=== PATIENT | female | born 1985 | race African-American/Black ===

== ENCOUNTER 2016-08-23 10:53 | Inpatient (IN) | payer OTHER ==
[2016-08-22 10:03] VITALS: BMI 44.9
[2016-08-23] MEDS ORDERED: BUPIVACAINE HCL/PF 0.5% (5MG/ML) 10 ML VIAL ONE (12:19)
[2016-08-23] MEDS ORDERED: PROPOFOL 20 ML ONE ×2 (12:27)
[2016-08-23] MEDS ORDERED: ROCURONIUM BROMIDE 50 MG/5 ML VIAL ONE ×2 (12:27→13:41)
[2016-08-23] MEDS ORDERED: MIDAZOLAM HCL 2 MG/2 ML SINGLE DOSE VIAL ONE (12:28)
[2016-08-23] MEDS ORDERED: SCOPOLAMINE HYDROBROMIDE 1 PATCH PATCH.TD72 ONE (12:37)
[2016-08-23] MEDS ORDERED: ceFAZolin SODIUM 1 GM VIAL IVPB ONE (14:02)
[2016-08-23] MEDS ORDERED: DEXAMETHASONE SOD PHOSPHATE 4 MG/1 ML VIAL ONE (14:03)
[2016-08-23] MEDS ORDERED: ceFAZolin SODIUM 1 GM VIAL ONE (14:03)
[2016-08-23] MEDS ORDERED: BUPIVACAINE HCL/PF 0.5% (5MG/ML) 10 ML VIAL IJ ONE (14:31)
[2016-08-23] MEDS ORDERED: NEOSTIGMINE METHYLSULFATE 0.5 MG/ML - 10 ML MDV ONE (16:10)
[2016-08-23] MEDS ORDERED: GLYCOPYRROLATE 0.2 MG/1 ML VIAL ONE (16:11)
[2016-08-23] MEDS ORDERED: LACTATED RINGERS SOLUTION 1,000 ML IV SCH (16:45)
[2016-08-23] MEDS ORDERED: HYDROmorphone HCL CARPU-JECT 2 MG/1 ML DISP.SYRIN IVPUSH ONE ×3 (16:45→17:30)
[2016-08-23] MEDS ORDERED: PROMETHAZINE HCL 25 MG/1 ML VIAL IVPUSH PRN (16:45)
[2016-08-23] MEDS ORDERED: HYDROmorphone HCL CARPU-JECT 1 MG/1 ML DISP.SYRIN IVPUSH PRN (16:45)
[2016-08-23] MEDS ORDERED: ONDANSETRON 4 MG/2 ML VIAL IVPUSH PRN (16:45)
[2016-08-23] MEDS ORDERED: ACETAMINOPHEN INJECTION 100 ML IVPB ONE (16:47)
[2016-08-23] MEDS ORDERED: HYDROmorphone HCL CARPU-JECT 2 MG/1 ML DISP.SYRIN ONE (16:47)
[2016-08-23] MEDS ORDERED: ACETAMINOPHEN 1000 MG/100 ML VIAL (NON FORMULARY) IVPB ONE (16:50)
--- NOTE | 2016-08-23 17:09 | HP ---
Admitting History and Physical - Admission Chief Complaint: Morbid Obesity History of Present Illness: 31 female presented to the office for bariatric surgery Decided on laparoscopic vertical sleeve gastrectomy History Source: Patient Limitations to Obtaining History: No Limitations - Past Medical History Cardiovascular: Yes: HTN Gastrointestinal: Yes: Other (Morbid Obesity) ...LMP: 07/22/16 - Past Surgical History Past Surgical History: Yes: - Smoking History Smoking history: Never smoked - Alcohol/Substance Use Hx Alcohol Use: Yes (OCCAS) Home Medications - Allergies Allergies/Adverse Reactions: Allergies Allergy/AdvReac Type Severity Reaction Status Date / Time No Known Allergies Allergy Verified 08/22/16 10:03 - Home Medications Home Medications: Ambulatory Orders NK [No Known Home Medication] 08/23/16 Family Disease History - Family Disease History Family History: Unremarkable Review of Systems - Review of Systems Constitutional: denies: Chills, Fever HENT: reports: No Symptoms Neck: denies: Decreased ROM Cardiovascular: denies: Chest Pain Respiratory: denies: Cough Gastrointestinal: denies: Abdominal Pain Genitourinary: reports: No Symptoms Endocrine: reports: No Symptoms Pain Intensity: 0 Physical Examination Vital Signs: Vital Signs Temperature 99.0 F 08/23/16 11:43 Pulse Rate 90 08/23/16 11:43 Respiratory Rate 18 08/23/16 11:43 Blood Pressure 123/80 08/23/16 11:43 O2 Sat by Pulse Oximetry (%) 100 08/23/16 11:43 Constitutional: Yes: Calm HENT: Yes: WNL Neck: Yes: Supple Cardiovascular: Yes: Regular Rate and Rhythm Respiratory: Yes: Regular Gastrointestinal: Yes: Soft, Abdomen, Obese Extremities: Yes: WNL Neurological: Yes: Alert, Oriented Problem List - Problems (1) Morbid (severe) obesity due to excess calories Code(s): E66.01 - MORBID (SEVERE) OBESITY DUE TO EXCESS CALORIES (2) Hypertension Code(s): I10 - ESSENTIAL (PRIMARY) HYPERTENSION Qualifiers: Hypertension type: essential hypertension Qualified Code(s): I10 - Essential (primary) hypertension Assessment/Plan Morbid Obesity For laparoscopic vertical sleeve gastrectomy Risks and benefits explained Understands and agrees
--- NOTE | 2016-08-23 17:10 | OP ---
Operative Note - Note: Operative Date: 08/23/16 Pre-Operative Diagnosis: Morbid Obesity Operation: Laparoscopic vertical sleeve gastrectomy Post-Operative Diagnosis: Same as Pre-op Surgeon: Jefferson Arango Investment Banking Associate: Sol Hager Anesthesia: General Specimens Removed: Greater curvature of the stomach Estimated Blood Loss (mls): 30 Drains & Tubes with Location: cottrell Operative Report Dictated: Yes
[2016-08-23] MEDS ORDERED: SODIUM CHLORIDE 1,000 ML IV SCH (17:15)
[2016-08-23] MEDS: ACETAMINOPHEN 1000 MG/100 ML VIAL (NON FORMULARY) IVPB SCH ×2 (17:20→22:21)
[2016-08-23 17:26] LABS: MCH 26.2 pg (25.7-33.7); MCHC 31.8 g/dl (32.0-36.0); MEAN CELL VOLUME 82.3 fl (80-96); MEAN PLT VOLUME 9.2 fl (7.5-11.1); PLATELET COUNT 305 K/MM3 (134-434); RDW 14.3 % (11.6-15.6); WHITE BLOOD COUNT 15.6 K/mm3 (4.0-10.0)
[2016-08-23 17:58] LABS: ALBUMIN 3.6 g/dl (3.4-5.0); ALK PHOS 69 U/L (45-117); ANION GAP 13 (8-16); BILIRUBIN,TOTAL 0.3 mg/dL (0.2-1.0); CALCIUM 8.5 mg/dL (8.5-10.1); CO2 23 mmol/L (21-32); GLUCOSE,RANDOM 125 mg/dL (74-106); SGOT/AST 26 U/L (15-37); SGPT/ALT 32 U/L (12-78); TOT PROT 6.7 g/dl (6.4-8.2)
[2016-08-23] MEDS: HYDROmorphone HCL CARPU-JECT 1 MG/1 ML DISP.SYRIN IVPB PRN (19:04)
--- NOTE | 2016-08-23 19:40 | SPEC ---
DATE OF OPERATION: 08/23/2016 SURGEON: Daja Arango M.D. BACK JOINER: Chana Rodriguez PREOPERATIVE DIAGNOSIS: Morbid obesity. POSTOPERATIVE DIAGNOSIS: Morbid obesity. PROCEDURE: Laparoscopic vertical sleeve gastrectomy. SPECIMENS: Greater curvature of the stomach. ESTIMATED BLOOD LOSS: 30 mL. DRAINS: None. ANESTHESIA: GET. RISKS AND BENEFITS: After describing the different options for weight loss management, the patient decided to proceed with a laparoscopic, possible open vertical sleeve gastrectomy. The patient was seen by the respective subspecialties and cleared for surgery. The risks and benefits of the procedure were explained. These included bleeding, infection, hernia, KS, DVT, PE, injury to surrounding structures including the liver, colon, bowel, spleen, esophagus, vessel injury, nerve injury, weight regain, gastric leak, staple line leak, sleeve leak, obstruction, vitamin deficiency, hair loss, and as some of the possible complications. The patient understood and signed informed consent. DESCRIPTION OF PROCEDURE: The patient was placed supine on the operating room table. The patient underwent general endotracheal intubation. A Oliveira catheter was inserted. The arms were brought out at 90 degrees and secured. A foot board was placed, and the legs were secured laterally with padding. The abdomen was prepped and draped in the usual sterile fashion. A timeout was performed. An incision was made in the left upper quadrant, and a Veress needle inserted. Pneumoperitoneum was established. Subsequently, the Veress needle was removed, and a 12-mm trocar was placed. The laparoscopic camera was inserted, and inspection of the abdominal cavity was performed. An incision was made in the supraumbilical region, and a 15-mm trocar placed under direct visualization. A 5-mm trocar was then placed in the right upper quadrant, and a 5-mm trocar placed below the left subcostal margin. A stab wound was made in the subxiphoid area, and a Jelly clamp inserted and removed to dilate the tract. A Berenice liver retractor was inserted. The post was secured at the bedside by the nursing staff. The patient was placed in steep reverse Trendelenburg position. The Berenice liver retractor was used to secure the liver towards the anterior abdominal wall. The pylorus was identified and 6 cm proximal to it, the lesser sac was entered using the Ligasure device. All lateral attachments to the greater curvature of the stomach including the short gastric vessels were ligated using the Ligasure device toward the gastrosplenic and gastrophrenic ligaments. Once this was done in its entirety, it was confirmed that all tubes within the nasal or oropharyngeal cavity including a temperature probe was removed by Anesthesia. The bougie was then inserted by Anesthesia. Transection of the stomach was then begun staying adjacent to the bougie but away from the angularis. Transection of the stomach was performed near the portion of the stomach where the lesser sac was entered. Two laparoscopic Endo-HEATHER black loads were used at this location. Laparoscopic Endo-HEATHER purple loads were then used for the remainder of the transection until the greater curvature of the stomach was fully transected. This was done staying close to the bougie. Care was taken to stay away from the angle of His cephalad. The staple line was then inspected. Hemostasis was identified. A leak test was then performed. The stomach was clamped distally to the staple line. Irrigation solution was placed in the left upper quadrant, and air insufflated by Anesthesia into the sleeve. No leaks were identified, and no obstruction was identified. This was done throughout the entirety of the staple line. At this point, the irrigation solution was suctioned, and again hemostasis noted. The 15-mm supraumbilical trocar was then removed, and the specimen removed from the site using a sponge stick rodriguez. The specimen was inspected, and a Veress needle inserted. The specimen insufflated adequately, and no leak was identified. The staple line was noted to be intact. A Marcel Renee device was then used to temporarily close the fascia with a 0 Vicryl suture at this site. The 15-mm trocar was then reinserted, and the 12-mm trocar in the left upper quadrant removed. The fascia at this site was then closed using a Marcel Renee device with a 0 Vicryl suture. Again, hemostasis was noted. The Berenice liver retractor was then removed under direct visualization. Pneumoperitoneum was desufflated, and the fascial sutures were secured. Hemostasis was noted at all incision sites, and Marcaine was injected at all incision sites. All incision sites were closed using 4-0 Biosyn. Sterile dressings were applied. The patient tolerated the procedure well, and was transferred to the recovery room in stable condition with the Oliveira catheter intact. The patient was transferred to telemetry for further monitoring. Several areas of the staple line were noted to be oozing and were oversewn using Endo Stitch with 2-0 Ethibond suture. At the end, all bleeding was noted to be controlled. DAJA ARANGO M.D. [id number]
[2016-08-23] MEDS: ONDANSETRON 4 MG/2 ML VIAL IVPB SCH ×2 (20:32)
[2016-08-23] MEDS: METOCLOPRAMIDE HCL INJECTION 10 MG/2 ML VIAL IVPB SCH ×2 (20:32→22:22)
[2016-08-23] MEDS: ENOXAPARIN NA (PORCINE) 40 MG/0.4 ML DISP.SYRIN SQ SCH (22:22)
[2016-08-23] MEDS: FAMOTIDINE 20 MG/50 ML IVPB 50 ML IVPB SCH (22:22)
[2016-08-24] MEDS: ONDANSETRON 4 MG/2 ML VIAL IVPB SCH ×6 (00:49→20:57)
[2016-08-24] MEDS: HYDROmorphone HCL CARPU-JECT 1 MG/1 ML DISP.SYRIN IVPB PRN ×6 (00:50→21:02)
[2016-08-24] MEDS: METOCLOPRAMIDE HCL INJECTION 10 MG/2 ML VIAL IVPB SCH ×4 (06:22→22:23)
[2016-08-24] MEDS: ACETAMINOPHEN 1000 MG/100 ML VIAL (NON FORMULARY) IVPB SCH ×2 (06:23→11:36)
[2016-08-24 08:04] LABS: MCH 26.4 pg (25.7-33.7); MCHC 32.1 g/dl (32.0-36.0); MEAN CELL VOLUME 82.1 fl (80-96); MEAN PLT VOLUME 9.1 fl (7.5-11.1); PLATELET COUNT 274 K/MM3 (134-434); RDW 14.3 % (11.6-15.6); WHITE BLOOD COUNT 13.5 K/mm3 (4.0-10.0)
[2016-08-24 08:56] LABS: ALBUMIN 3.4 g/dl (3.4-5.0); ALK PHOS 63 U/L (45-117); ANION GAP 11 (8-16); BILIRUBIN,TOTAL 0.4 mg/dL (0.2-1.0); CALCIUM 8.1 mg/dL (8.5-10.1); CO2 23 mmol/L (21-32); CREATININE 0.8 mg/dL (0.55-1.02); GLUCOSE,RANDOM 102 mg/dL (74-106); SGOT/AST 40 U/L (15-37); SGPT/ALT 44 U/L (12-78); TOT PROT 6.3 g/dl (6.4-8.2)
--- NOTE | 2016-08-24 09:41 | PN ---
[id number] since surgery. Just returned from having her UGI --> No evidence of gastric outlet obstruction , extravasation or leak. small volume of stomach. Normal mucosal pattern in duodenal sweep, proximal jejunum opacified. She is OOB and ambulating. Denies n/ v/f/c, CP or SOB. Last Vital Signs Temp Pulse Resp BP Pulse Ox 98.3 F 101 H 20 127/90 97 08/24/16 08:18 08/24/16 08:18 08/24/16 08:18 08/24/16 08:18 08/23/16 21:00 CBC, BMP 08/24/16 06:20 08/24/16 06:20 <Gokul Davis P - Last Filed: 08/24/16 09:45> - Note Progress Note: Agree POD 1 laparoscopic vertical sleeve gastrectomy + Nausea No vomiting Pain controlled AVSS Abd soft, wounds c/d/i CBC,CMP WBC 13.5 K/mm3 (4.0-10.0) H 08/24/16 06:20 RBC 4.36 M/mm3 (3.60-5.2) 08/24/16 06:20 Hgb 11.5 GM/dL (10.7-15.3) 08/24/16 06:20 Hct 35.8 % (32.4-45.2) 08/24/16 06:20 MCV 82.1 fl (80-96) 08/24/16 06:20 MCHC 32.1 g/dl (32.0-36.0) 08/24/16 06:20 RDW 14.3 % (11.6-15.6) 08/24/16 06:20 Plt Count 274 K/MM3 (134-434) 08/24/16 06:20 MPV 9.1 fl (7.5-11.1) 08/24/16 06:20 Sodium 140 mmol/L (136-145) 08/24/16 06:20 Potassium 4.2 mmol/L (3.5-5.1) 08/24/16 06:20 Chloride 106 mmol/L (98-107) 08/24/16 06:20 Carbon Dioxide 23 mmol/L (21-32) 08/24/16 06:20 Anion Gap 11 (8-16) 08/24/16 06:20 BUN 9 mg/dL (7-18) 08/24/16 06:20 Creatinine 0.8 mg/dL (0.55-1.02) 08/24/16 06:20 Creat Clearance w eGFR > 60 (>60) 08/24/16 06:20 Random Glucose 102 mg/dL (74-106) 08/24/16 06:20 Calcium 8.1 mg/dL (8.5-10.1) L 08/24/16 06:20 Total Bilirubin 0.4 mg/dL (0.2-1.0) D 08/24/16 06:20 AST 40 U/L (15-37) H D 08/24/16 06:20 ALT 44 U/L (12-78) D 08/24/16 06:20 Alkaline Phosphatase 63 U/L (45-117) 08/24/16 06:20 Total Protein 6.3 g/dl (6.4-8.2) L 08/24/16 06:20 Albumin 3.4 g/dl (3.4-5.0) 08/24/16 06:20 UGI- no leak/obstruction D/C cottrell 2 ounces clears tid OOB <Jefferson Arango - Last Filed: 08/24/16 09:52> Problem List - Problems (1) Morbid (severe) obesity due to excess calories Assessment/Plan: POD #1 s/p Laparoscopic sleeve gastrectomy dc cottrell ordered OOB and ambulate Incentive spirometer Bariatric Stage 1 diet ordered GI / DVT ppx Code(s): E66.01 - MORBID (SEVERE) OBESITY DUE TO EXCESS CALORIES <Gokul Davis - Last Filed: 08/24/16 09:45> - Problems (1) Morbid (severe) obesity due to excess calories Code(s): E66.01 - MORBID (SEVERE) OBESITY DUE TO EXCESS CALORIES (2) Hypertension Code(s): I10 - ESSENTIAL (PRIMARY) HYPERTENSION Qualifiers: Hypertension type: essential hypertension Qualified Code(s): I10 - Essential (primary) hypertension <Jefferson Arango - Last Filed: 08/24/16 09:52>
[2016-08-24] MEDS: ENOXAPARIN NA (PORCINE) 40 MG/0.4 ML DISP.SYRIN SQ SCH ×2 (09:54→21:03)
[2016-08-24] MEDS: FAMOTIDINE 20 MG/50 ML IVPB 50 ML IVPB SCH ×2 (10:12→21:04)
--- NOTE | 2016-08-24 10:29 | SURG ---
Surgery Balloon Sander Note Balloon Sander: Sol Hager PA-C Date of Service: 08/23/16 Diagnosis: Morbid Obesity Procedure: Laparoscopic vertical sleeve gastrectomy I was present for the entirety of the operative procedure. For further detail, please refer to operative report. Visit type - Case Type Case Type: Scheduled Admission
[2016-08-24] MEDS: SODIUM CHLORIDE 1,000 ML IV SCH ×2 (11:36→14:08)
[2016-08-25] MEDS: ONDANSETRON 4 MG/2 ML VIAL IVPB SCH ×3 (01:36→09:38)
[2016-08-25] MEDS: ACETAMINOPHEN 325 MG TABLET (FP) PO PRN ×3 (01:36→10:31)
[2016-08-25] MEDS: oxyCODONE HCL 5 MG TABLET PO PRN ×3 (01:37→10:30)
[2016-08-25] MEDS: METOCLOPRAMIDE HCL INJECTION 10 MG/2 ML VIAL IVPB SCH (06:45)
[2016-08-25] MEDS: SODIUM CHLORIDE 1,000 ML IV SCH ×2 (09:38)
[2016-08-25] MEDS: FAMOTIDINE 20 MG/50 ML IVPB 50 ML IVPB SCH (09:39)
[2016-08-25] MEDS: ENOXAPARIN NA (PORCINE) 40 MG/0.4 ML DISP.SYRIN SQ SCH (09:39)
[2016-08-25 10:39] VITALS: BP 138/92; PULSE 102; TEMP 97.8
--- NOTE | 2016-08-25 11:16 | PN ---
Progress Note (short form) - Note Progress Note: POD 2 Pain controlled Tolerating clears AVSS Abd soft Discharge home Postoperative instructions given Problem List - Problems (1) Morbid (severe) obesity due to excess calories Code(s): E66.01 - MORBID (SEVERE) OBESITY DUE TO EXCESS CALORIES (2) Hypertension Code(s): I10 - ESSENTIAL (PRIMARY) HYPERTENSION Qualifiers: Hypertension type: essential hypertension Qualified Code(s): I10 - Essential (primary) hypertension
--- NOTE | 2016-08-31 11:18 | PATH ---
Surgical Pathology Report Patient Name: [facility]ST[facility]BAL [facility]. Rec. #: [id number] /Age/Gender: 1985 (Age: 31) / F Account: [id number] Location: 4 W TELEMETRY U Taken: 08/23/2016 Received: 08/24/2016 Reported: 08/25/2016 Physicians: Jefferson Arango M.D. Specimen(s) Received GREATER CURVATURE OF STOMACH Clinical History Morbid obesity Final Diagnosis STOMACH, GREATER CURVATURE, LAPAROSCOPIC VERTICAL SLEEVE GASTRECTOMY: PORTION OF STOMACH WITH MILD CHRONIC GASTRITIS. IMMUNOSTAIN FOR H. PYLORI IS NEGATIVE FOR ORGANISMS. Electronically Signed Jefferson Brewer M.D. Gross Description Received in formalin, labeled "greater curvature of stomach" is a 123 gram, 19.5 x 4.5 x 3.0 cm portion of stomach with a stapled margin of resection. The serosa is harris-nichole with minimal attached fat. The mucosa is harris-red with focally flattened folds. No mucosal masses are identified. [employer] Operator sections are submitted in one cassette. /08/24/2016 [facility]/08/24/2016
== END 2016-08-25 11:59 | disposition home or self-care (01) | DRG 403 ==
LOC: JSAMEDAYSX 10:53 → J4W 18:30
PROVIDERS: ADMIT Surgery; ATTEND Surgery
PROC: 0DB64Z3 Excision of Stomach, Percutaneous Endoscopic Approach, Vertical (ICD-10-PCS; principal; 2016-08-23 12:00)
DX: E66.01 Morbid (severe) obesity due to excess calories (principal); Z68.42 Body mass index [BMI] 45.0-49.9, adult; Z71.3 Dietary counseling and surveillance; I10 Essential (primary) hypertension
CPT/HCPCS: 36415; 74241-TC; 80053; 84703; 85027; 88305-TC; 94010; 94760